=== PATIENT | female | born 1990 | race Caucasian/White ===

== ENCOUNTER 2017-05-10 00:44 | Emergency (ER) | payer BC, OTHER ==
[2017-05-10 01:31] LABS: BHCG - Serum Negative (NEGATIVE); Pregs Control Background? CLEAR/WHITE (CLR/WHITE); Pregs Control Bar Appear? YES (CONTROL BAR)
[2017-05-10 01:35] LABS: #Basophils 0.1 thou/uL (0.0-0.2); #Eosinphils 0.5 thou/uL (0.0-0.7); #Lymphocytes 4.2 thou/uL (1.20-3.40); #Monocytes 0.8 thou/uL (0.11-0.59); #Neutrophils 3.9 thou/uL (1.40-6.50); %Basophils 1.3 % (0.0-1.0); %Eosinophils 5.1 % (0.0-10.0); %Lymphocytes 44.3 % (21.0-51.0); %Monocytes 8.1 % (0.0-10.0); %Neutrophils 41.2 % (42.0-75.0); Hemoglobin 13.2 g/dL (12.0-16.0); Mean Corpuscular HGB CONC 34.2 g/dL (32.0-36.0); Mean Corpuscular Hemoglobin 28.8 pg (27.0-31.0); Mean Corpuscular Volume 84.1 fl (81.0-99.0); Mean Platelet Volume 12.1 fL (7.4-10.4); Platelet Count 200 thou/uL (130-400); RBC Distribution Width 11.1 % (11.5-14.5); Red Blood Cell (RBC) Count 4.58 mill/uL (4.20-5.40); White Blood Cell (WBC) Count 9.5 thou/uL (4.8-10.8)
[2017-05-10 01:36] LABS: Bilirubin Negative (Negative); Blood, Urine Negative (Negative); Clarity Clear (Clear); Glucose, Urine (Dipstick) Negative (Negative); Leukocyte Negative (Negative); Nitrite Negative (Negative); Protein, Urine (Dipstick) Negative (Neg-Trace); Urobilinogen 0.2 mg/dL (0.2-1.0); pH, Urine 6.5 (5.0-9.0)
[2017-05-10 01:38] LABS: Anion Gap 11 mmol/L (10-20); BUN (Urea Nitrogen) 12 mg/dL (7.0-18.7); Calc. Creatinine Clearance 0 mL/min (70-130); Calcium 9.1 mg/dL (7.8-10.44); Carbon Dioxide 25 mmol/L (22-29); Chloride 107 mmol/L (98-107); Estimated GFR-MDRD Greater than 90; Glucose 83 mg/dL (70-105); Potassium 3.4 mmol/L (3.5-5.1); Sodium 140 mmol/L (136-145)
[2017-05-10 01:41] LABS: Specific Gravity, Urine 1.033 (1.002-1.036)
== END 2017-05-10 02:00 | disposition home or self-care (01) ==
LOC: SCSER 00:44
DX: R42 Dizziness and giddiness (principal); R53.81 Other malaise; R51 Headache; J45.909 Unspecified asthma, uncomplicated
CPT/HCPCS: 80048; 81003; 84703; 85025; 99284

== ENCOUNTER 2017-12-20 12:30 | Emergency (ER) | payer BC ==
[~2017-12-20 12:30] MED LIST: Iopamidol 370 76% 100 ML VIAL ONE
[2017-12-20 13:31] LABS: #Basophils 0.1 thou/uL (0.0-0.2); #Eosinphils 0.2 thou/uL (0.0-0.7); #Lymphocytes 2.4 thou/uL (1.20-3.40); #Monocytes 0.7 thou/uL (0.11-0.59); #Neutrophils 4.7 thou/uL (1.40-6.50); %Basophils 1.2 % (0.0-1.0); %Eosinophils 2.7 % (0.0-10.0); %Lymphocytes 29.4 % (21.0-51.0); %Monocytes 8.5 % (0.0-10.0); %Neutrophils 58.3 % (42.0-75.0); ALT (SGPT) 14 U/L (8-55); AST (SGOT) 14 U/L (5-34); Albumin 3.9 g/dL (3.5-5.0); Alkaline Phosphatase 80 U/L (40-150); Anion Gap 12 mmol/L (10-20); BUN (Urea Nitrogen) 8 mg/dL (7.0-18.7); Bilirubin, Total 0.7 mg/dL (0.2-1.2); Calc. Creatinine Clearance 0 mL/min (70-130); Calcium 8.9 mg/dL (7.8-10.44); Carbon Dioxide 23 mmol/L (22-29); Chloride 109 mmol/L (98-107); Estimated GFR-MDRD Greater than 90; Globulin 2.9 g/dL (2.4-3.5); Glucose 79 mg/dL (70-105); Hemoglobin 12.6 g/dL (12.0-16.0); Large Platelets SLIGHT; MDiff Complete? YES; Mean Corpuscular HGB CONC 33.9 g/dL (32.0-36.0); Mean Corpuscular Hemoglobin 27.2 pg (27.0-31.0); Mean Corpuscular Volume 80.3 fL (78.0-98.0); PLT Morphology Comment Appears Adequate; Platelet Count 133 thou/uL (130-400); Potassium 3.7 mmol/L (3.5-5.1); Protein, Total 6.8 g/dL (6.0-8.3); RBC Distribution Width 11.2 % (11.5-14.5); RBC Morphology Normal; Red Blood Cell (RBC) Count 4.62 mill/uL (4.20-5.40); Sodium 140 mmol/L (136-145)
[2017-12-20 13:43] LABS: Pregnancy Test - Urine (BHCG) Negative (Negative); Pregu Control Background? CLEAR/WHITE (CLR/WHITE); Pregu Control Bar Appear? YES (CONTROL BAR); Specific Gravity 1.015 (1.002-1.036)
[2017-12-20 13:46] LABS: Bilirubin Negative (Negative); Blood, Urine Trace (Negative); Clarity Hazy (Clear); Glucose, Urine (Dipstick) 100 mg/dL (Negative); Leukocyte Small (Negative); Nitrite Positive (Negative); Protein, Urine (Dipstick) 100 mg/dL (Neg-Trace); Specific Gravity, Urine 1.015 (1.005-1.030)
[2017-12-20 13:48] LABS: Bacteria/HPF 4+ HPF (None Seen); RBC/HPF 0-3 HPF (0-3); WBC/HPF 21-50 HPF (0-3)
[2017-12-20 13:51] LABS: Lipase 14 U/L (8-78)
[2017-12-20] MEDS ORDERED: Ketorolac Tromethamine 30 MG/ML VIAL ONE (15:36)
--- NOTE | 2017-12-20 15:36 | CT ---
CT ABDOMEN AND PELVIS WITH ORAL AND IV CONTRAST: 12/20/17 HISTORY: Right sided flank pain. FINDINGS: Comparison is made with exam of 02/24/15. The lung bases are clear. The patient is post cholecystectomy. Calcified granulomas in the right lobe of the liver are again noted. The spleen, pancreas, adrenal glands and right kidney are normal. The previously noted tiny calculus in the right kidney is not seen on the current exam. There is a puncta te calculus in the left kidney. No hydroureteronephrosis seen on either side. No calculi seen in the aorta or the urinary bladder. No free air or lymphadenopathy is seen in the abdomen or pelvis. A tiny amount of free fluid is seen in the pelvis. The small bowel loops are not abnormally dilated. The uterus and ovaries are present. A normal appearing appendix is noted. IMPRESSION: 1. Tiny nonobstructing left renal calculus. 2. Small amount of free fluid in the pelvis. POS: [facility]
[2017-12-20] MEDS ORDERED: cefTRIAXone\\ROCEPHIN 2 GM VIAL ONE (15:45)
[2017-12-20] MEDS ORDERED: Sodium Chloride 0.9% 100 ML ONE (15:46)
== END 2017-12-20 17:32 | disposition home or self-care (01) ==
LOC: SCSER 12:30
DX: N12 Tubulo-interstitial nephritis, not specified as acute or chronic (principal); F32.9 Major depressive disorder, single episode, unspecified; J45.909 Unspecified asthma, uncomplicated; Z79.01 Long term (current) use of anticoagulants
CPT/HCPCS: 74177; 80053; 81003; 81015; 81025; 83690; 85025; 87077; 87086; 87186; 96361; 96365; 96375; J0696; J1885; J7050

== ENCOUNTER 2018-01-28 06:22 | Emergency (ER) | payer BC ==
[2018-01-28 06:46] LABS: #Basophils 0.1 thou/uL (0.0-0.2); #Eosinphils 0.2 thou/uL (0.0-0.7); #Monocytes 0.5 thou/uL (0.11-0.59); #Neutrophils 6.5 thou/uL (1.40-6.50); %Basophils 0.8 % (0.0-1.0); %Eosinophils 1.9 % (0.0-10.0); %Lymphocytes 35.1 % (21.0-51.0); %Monocytes 4.8 % (0.0-10.0); %Neutrophils 57.4 % (42.0-75.0); Hemoglobin 13.3 g/dL (12.0-16.0); Mean Corpuscular HGB CONC 32.7 g/dL (32.0-36.0); Mean Corpuscular Hemoglobin 28.4 pg (27.0-31.0); Mean Corpuscular Volume 86.9 fL (78.0-98.0); Mean Platelet Volume 10.3 fL (7.4-10.4); Platelet Count 166 thou/uL (130-400); RBC Distribution Width 11.7 % (11.5-14.5); Red Blood Cell (RBC) Count 4.66 mill/uL (4.20-5.40); White Blood Cell (WBC) Count 11.3 thou/uL (4.8-10.8)
[2018-01-28 07:07] LABS: ALT (SGPT) 30 U/L (8-55); AST (SGOT) 54 U/L (5-34); Albumin 4.1 g/dL (3.5-5.0); Alcohol Less than 10 mg/dL (Less than 10); Alkaline Phosphatase 109 U/L (40-150); Anion Gap 13 mmol/L (10-20); BUN (Urea Nitrogen) 11 mg/dL (7.0-18.7); Bilirubin, Total 0.5 mg/dL (0.2-1.2); Calc. Creatinine Clearance 0 mL/min (70-130); Calcium 8.9 mg/dL (7.8-10.44); Carbon Dioxide 22 mmol/L (22-29); Chloride 108 mmol/L (98-107); Estimated GFR-MDRD Greater than 90; Globulin 3.2 g/dL (2.4-3.5); Glucose 207 mg/dL (70-105); Protein, Total 7.3 g/dL (6.0-8.3); Salicylate Less than 8.0 mg/dL (15.0-30.0); Sodium 140 mmol/L (136-145)
[2018-01-28 07:19] LABS: Potassium 2.9 mmol/L (3.5-5.1)
[2018-01-28] MEDS ORDERED: Potassium Chloride 20 MEQ TAB ONE (08:08)
[2018-01-28 08:36] LABS: Bilirubin Negative (Negative); Blood, Urine Negative (Negative); Clarity CLEAR (Clear); Glucose, Urine (Dipstick) 250 mg/dL (Negative); Leukocyte Negative (Negative); Nitrite Negative (Negative); Protein, Urine (Dipstick) Trace mg/dL (Neg-Trace); Specific Gravity, Urine 1.038 (1.002-1.036); Urobilinogen 0.2 mg/dL (0.2-1.0); pH, Urine 5.5 (5.0-9.0)
[2018-01-28 08:45] LABS: Amphetamine Not Detected (NotDetected); Barbiturates Screen Not Detected (NotDetected); Benzodiazepine Screen Not Detected (NotDetected); Cocaine Metabolite Screen Not Detected (NotDetected); Medtox Control Line Valid? VALID (VALID); Medtox Reader # READER 1; Methadone Not Detected (NotDetected); Methamphetamine Not Detected (NotDetected); Opiate Screen Not Detected (NotDetected); Oxycodone Screen Not Detected (NotDetected); Phencyclidine (PCP) Not Detected (NotDetected); Pregnancy Test - Urine (BHCG) Negative (Negative); Pregu Control Background? CLEAR/WHITE (CLR/WHITE); Pregu Control Bar Appear? YES (CONTROL BAR); Specific Gravity 1.038 (1.002-1.036); THC/Cannabinoid Screen Not Detected (NotDetected); Tricyclic Screen Not Detected (NotDetected)
[2018-01-28 09:33] LABS: Alcohol Less than 10 mg/dL (Less than 10); Anion Gap 11 mmol/L (10-20); BUN (Urea Nitrogen) 12 mg/dL (7.0-18.7); Calc. Creatinine Clearance 0 mL/min (70-130); Calcium 8.7 mg/dL (7.8-10.44); Carbon Dioxide 25 mmol/L (22-29); Chloride 107 mmol/L (98-107); Estimated GFR-MDRD Greater than 90; Glucose 125 mg/dL (70-105); Potassium 3.8 mmol/L (3.5-5.1); Salicylate Less than 8.0 mg/dL (15.0-30.0); Sodium 139 mmol/L (136-145)
[2018-01-28] MEDS ORDERED: Ondansetron ODT 4 MG TAB ONE (15:02)
[2018-01-29] MEDS ORDERED: Escitalopram Oxalate 10 mg Tablet PO SCH (08:30)
--- NOTE | 2018-01-31 17:59 | EKG ---
Test Reason : ER INDICATION Blood Pressure : / mmHG Vent. Rate : 062 BPM Atrial Rate : 062 BPM P-R Int : 134 ms QRS Dur : 100 ms QT Int : 444 ms P-R-T Axes : 039 061 -70 degrees QTc Int : 450 ms Normal sinus rhythm with sinus arrhythmia Nonspecific T wave abnormality Abnormal ECG Confirmed by RADHIKA GONZALEZ, MICHELE ([id number]), editor map MILLY BARBER ([id number]) on 01/31/2018 5:59:25 PM Referred By: Confirmed By:MICHELE GARRIDO MD
== END 2018-01-29 08:55 ==
LOC: ERS 06:22
DX: T39.1X2A Poisoning by 4-Aminophenol derivatives, intentional self-harm, initial encounter (principal); T40.4X2A Poisoning by other synthetic narcotics, intentional self-harm, initial encounter; J45.909 Unspecified asthma, uncomplicated; F32.9 Major depressive disorder, single episode, unspecified; Z79.899 Other long term (current) drug therapy
CPT/HCPCS: 36415; 51701; 80053; 80306; 80307; 81003; 81025; 84443; 85025; 93005; 94760; A4353; Q0162

== ENCOUNTER 2018-02-20 23:20 | Emergency (ER) | payer BC, OTHER ==
[2018-02-20] MEDS ORDERED: Ibuprofen 800 MG TAB ONE (23:36)
--- NOTE | 2018-02-20 23:48 | RAD ---
LEFT FOREARM TWO VIEWS: 02/20/18 HISTORY: Hit in arm with a bowling ball. There is no signs of fracture or dislocation. IMPRESSION: Negative left forearm. POS: [facility]
== END 2018-02-21 00:11 | disposition home or self-care (01) ==
LOC: ERS 23:20
DX: S50.12XA Contusion of left forearm, initial encounter (principal); J45.909 Unspecified asthma, uncomplicated; F32.9 Major depressive disorder, single episode, unspecified; Z79.899 Other long term (current) drug therapy; Z79.01 Long term (current) use of anticoagulants; W20.8XXA Other cause of strike by thrown, projected or falling object, initial encounter

== ENCOUNTER 2018-03-13 11:58 | Emergency (ER) | payer BC, OTHER ==
[2018-03-13] MEDS ORDERED: Acetaminophen 500 MG TAB ONE (13:43)
--- NOTE | 2018-03-13 14:42 | CT ---
NONCONTRAST HEAD CT: Comparison: 12-18-13 History: Head injury. Pain. Patient hit her head on a metal object at work. Worsening symptoms. FINDINGS: No parenchymal hemorrhage. No extraaxial hematoma. No midline shift. Basilar cisterns are patent. Bra in volume, age appropriate. Cortical hayes white matter differentiation is preserved. Ventricles and sulci are patent and symmetric. Calvarium is intact. Adequate aeration of the sinuses and mastoid air cells. IMPRESSION: No intracranial post traumatic sequalae. POS: [facility]
== END 2018-03-13 13:57 | disposition home or self-care (01) ==
LOC: ERS 11:58
DX: F07.81 Postconcussional syndrome (principal); J45.909 Unspecified asthma, uncomplicated; F32.9 Major depressive disorder, single episode, unspecified; Z79.899 Other long term (current) drug therapy
CPT/HCPCS: 70450

== ENCOUNTER 2018-08-01 19:08 | Emergency (ER) | payer BC, MEDICAID ==
[2018-08-01 19:50] LABS: Bilirubin Negative (Negative); Blood, Urine Negative (Negative); Clarity TURBID (Clear); Glucose, Urine (Dipstick) Negative (Negative); Leukocyte Small (Negative); Nitrite Negative (Negative); Protein, Urine (Dipstick) Negative (Neg-Trace); Specific Gravity, Urine 1.021 (1.002-1.036); Urobilinogen 0.2 mg/dL (0.2-1.0); pH, Urine 7.5 (5.0-9.0)
[2018-08-01 19:52] LABS: Bacteria/HPF 1+ HPF (None Seen); Hyaline Casts/LPF 4-6 HYALINE CAST LPF (0-3 Hyaline); Pathc Cast-AUWi Flag 0.95 (0-2.49); Squamous Epithelial 21-50 HPF (0-3)
[2018-08-01 19:59] LABS: RBC/HPF 0-3 HPF (0-3)
[2018-08-01 20:00] LABS: Crystals/HPF 2+ AMORPH PHOS HPF (Negative)
[2018-08-01 20:13] LABS: #Basophils 0.1 thou/uL (0.0-0.2); #Eosinphils 0.1 thou/uL (0.0-0.7); #Lymphocytes 2.6 thou/uL (1.20-3.40); #Monocytes 0.7 thou/uL (0.11-0.59); #Neutrophils 5.2 thou/uL (1.40-6.50); %Basophils 0.8 % (0.0-1.0); %Eosinophils 1.5 % (0.0-10.0); %Lymphocytes 30.3 % (21.0-51.0); %Monocytes 7.5 % (0.0-10.0); %Neutrophils 59.8 % (42.0-75.0); Hemoglobin 14.2 g/dL (12.0-16.0); Mean Corpuscular HGB CONC 33.3 g/dL (32.0-36.0); Mean Corpuscular Hemoglobin 28.6 pg (27.0-31.0); Mean Corpuscular Volume 85.7 fL (78.0-98.0); Mean Platelet Volume 10.5 fL (7.4-10.4); Platelet Count 183 thou/uL (130-400); RBC Distribution Width 12.7 % (11.5-14.5); Red Blood Cell (RBC) Count 4.97 mill/uL (4.20-5.40); White Blood Cell (WBC) Count 8.6 thou/uL (4.8-10.8)
[2018-08-01 20:43] LABS: ALT (SGPT) 18 U/L (8-55); AST (SGOT) 16 U/L (5-34); Albumin 4.6 g/dL (3.5-5.0); Alkaline Phosphatase 81 U/L (40-150); Anion Gap 10 mmol/L (10-20); BUN (Urea Nitrogen) 8 mg/dL (7.0-18.7); Bilirubin, Total 0.6 mg/dL (0.2-1.2); Calc. Creatinine Clearance 0 mL/min (70-130); Calcium 9.8 mg/dL (7.8-10.44); Carbon Dioxide 26 mmol/L (22-29); Chloride 104 mmol/L (98-107); Estimated GFR-MDRD Greater than 90; Globulin 3.5 g/dL (2.4-3.5); Glucose 71 mg/dL (70-105); Potassium 3.7 mmol/L (3.5-5.1); Protein, Total 8.1 g/dL (6.0-8.3); Sodium 136 mmol/L (136-145)
[2018-08-01] MEDS ORDERED: cefTRIAXone\\ROCEPHIN 1 GM VIAL ONE (20:43)
== END 2018-08-01 21:31 | disposition home or self-care (01) ==
LOC: ERS 19:08
DX: O23.41 Unspecified infection of urinary tract in pregnancy, first trimester (principal); O99.511 Diseases of the respiratory system complicating pregnancy, first trimester; J45.909 Unspecified asthma, uncomplicated; O99.341 Other mental disorders complicating pregnancy, first trimester; F41.9 Anxiety disorder, unspecified; F32.9 Major depressive disorder, single episode, unspecified; Z79.01 Long term (current) use of anticoagulants; Z79.51 Long term (current) use of inhaled steroids; Z3A.01 Less than 8 weeks gestation of pregnancy
CPT/HCPCS: 80053; 81003; 81015; 84702; 85025; 87086; 96361; 96365; J0696

== ENCOUNTER 2018-10-30 13:20 | Outpatient (CLI) | payer MEDICAID ==
--- NOTE | 2018-10-30 14:41 | ULT ---
OB ULTRASOUND: HISTORY: A 28-year-old female. Evaluate size, dates, and anatomy. COMPARISON: None. TECHNIQUE: Multiplanar hayes-scale and color Doppler images were obtained in a transabdominal ultrasound. FINDINGS: There is a single live intrauterine with a heart rate of 142 beats per minute. A barak vey was performed. The patient has bilateral choroid plexus cysts. The other intracranial structure s are unremarkable. The heart, stomach, umbilical cord, umbilical cord insertion, kidneys, face, and extremities are unremarkable. The average age of the fetus, based off today's examination, is 20 we eks 3 days. The following measurements were taken and dates based off these measurements are as foll ows: BPD: 4.74 cm (20 weeks 3 days). HC: 17.49 cm (20 weeks 1 day). AC: 15.44 cm (20 weeks 5 days). FL: 3.18 cm (20 weeks 0 days). The placenta is posterior in location without evidence of placenta previa. AMANDA is 9.73 cm, which is normal. IMPRESSION: 1. Live intrauterine , with estimated age 20 weeks 3 days. 2. Bilateral choroid plexus cysts. Although this is most likely benign, bilateral choroid plexus cy sts can be a sign of a genetic abnormality. Recommend followup with 3D ultrasound and chromosomal an alysis. POS: [facility]
== END 2018-10-30 13:21 | disposition home or self-care (01) ==
LOC: BICULT 13:20
PROVIDERS: ATTEND Family Medicine
DX: O35.0XX0 Maternal care for (suspected) central nervous system malformation in fetus, not applicable or unspecified (principal); Z3A.20 20 weeks gestation of pregnancy
CPT/HCPCS: 76805

== ENCOUNTER 2018-11-03 21:10 | Emergency (ER) | payer MEDICAID ==
[2018-11-03] MEDS ORDERED: Ondansetron PF 4 MG/2 ML Vial ONE (21:33)
[2018-11-03 21:47] LABS: #Eosinphils 0.1 thou/uL (0.0-0.7); #Monocytes 1.1 thou/uL (0.11-0.59); #Neutrophils 9.1 thou/uL (1.40-6.50); %Basophils 0.3 % (0.0-1.0); %Eosinophils 1.2 % (0.0-10.0); %Monocytes 9.1 % (0.0-10.0); %Neutrophils 73.4 % (42.0-75.0); Hemoglobin 11.8 g/dL (12.0-16.0); Mean Corpuscular Hemoglobin 29.6 pg (27.0-31.0); Mean Corpuscular Volume 86.9 fL (78.0-98.0); Mean Platelet Volume 10.2 fL (7.4-10.4); Platelet Count 193 thou/uL (130-400); RBC Distribution Width 12.4 % (11.5-14.5); Red Blood Cell (RBC) Count 3.98 mill/uL (4.20-5.40); White Blood Cell (WBC) Count 12.4 thou/uL (4.8-10.8)
[2018-11-03 22:02] LABS: Bilirubin Negative (Negative); Blood, Urine Negative (Negative); Clarity Cloudy (Clear); Glucose, Urine (Dipstick) Negative (Negative); Leukocyte Negative (Negative); Nitrite Negative (Negative); Protein, Urine (Dipstick) 30 mg/dL (Neg-Trace); Urobilinogen 0.2 mg/dL (0.2-1.0)
[2018-11-03 22:03] LABS: Specific Gravity, Urine 1.034 (1.002-1.036)
[2018-11-03 22:04] LABS: Bacteria/HPF 2+ HPF (None Seen); RBC/HPF 0-3 HPF (0-3)
[2018-11-03 22:05] LABS: Hyaline Casts/LPF 0-3 HYALINE CAST LPF (0-3 Hyaline); Yeast-All Forms None Seen HPF (None Seen)
[2018-11-03 22:09] LABS: ALT (SGPT) 16 U/L (8-55); AST (SGOT) 13 U/L (5-34); Albumin 3.6 g/dL (3.5-5.0); Alkaline Phosphatase 83 U/L (40-150); Anion Gap 11 mmol/L (10-20); BUN (Urea Nitrogen) 10 mg/dL (7.0-18.7); Bilirubin, Total 0.2 mg/dL (0.2-1.2); Calc. Creatinine Clearance 0 mL/min (70-130); Calcium 8.6 mg/dL (7.8-10.44); Carbon Dioxide 23 mmol/L (22-29); Chloride 102 mmol/L (98-107); Estimated GFR-MDRD Greater than 90; Globulin 3.4 g/dL (2.4-3.5); Glucose 77 mg/dL (70-105); Potassium 3.3 mmol/L (3.5-5.1); Sodium 133 mmol/L (136-145)
== END 2018-11-03 22:55 | disposition home or self-care (01) ==
LOC: ERS 21:10
DX: O21.0 Mild hyperemesis gravidarum (principal); R82.71 Bacteriuria; O99.89 Other specified diseases and conditions complicating pregnancy, childbirth and the puerperium; Z3A.21 21 weeks gestation of pregnancy; O99.512 Diseases of the respiratory system complicating pregnancy, second trimester; J45.909 Unspecified asthma, uncomplicated; O99.342 Other mental disorders complicating pregnancy, second trimester; F41.9 Anxiety disorder, unspecified; Z79.01 Long term (current) use of anticoagulants; Z79.51 Long term (current) use of inhaled steroids
CPT/HCPCS: 80053; 81003; 81015; 85025; 87086; 96361; 96374; J2405

== ENCOUNTER 2018-11-14 03:39 | Day surgery (SDC) | payer MEDICAID ==
[2018-11-14 04:01] VITALS: BP 104/58; TEMP 97.7; BMI 26.1
--- NOTE | 2018-11-14 04:34 | PDOC.LDHP ---
Labor and Delivery H&P Chief complaint: abdominal pain HPI: 28 yo at 22.6 here for lower abdominal pain. Started around midnight, stays in suprapubic region. Was seen in ER on 11/04 for similar sxs in which she was diagnosed with UTI and given keflex. Used old keflex from prior UTI and has been taking once daily as opposed to twice daily. This morning pain was so bad she came here. Denies, n/v, fevers, chills, hematuria, flank pain. Has had two uncomplicated UTIs in thus far. Reports urine is usually dark and drinks 2-3 standard bottles water/day. Denies VB/VD/LOF/CTX. Current gestational age (weeks): 22 (22.6) Due date: 03/14/19 Dating criteria: first trimester ultrasound Grav: 2 Para: 1 OB History Details: 1. term Current complications: none Past Medical History: asthma, anxiety/depression, hx of UTI in Current medications: pre-fatuma vitamins Allergies/Adverse Reactions: Allergies Allergy/AdvReac Type Severity Reaction Status Date / Time avocado Allergy Intermediate Swollen Verified 02/26/16 18:57 Lips banana Allergy Intermediate Swollen Verified 02/26/16 18:57 Lips kiwi Allergy Verified 02/26/16 18:57 Latex, Natural Rubber Allergy Verified 11/14/18 03:56 Social history: none - Physical Exam Vital signs reviewed and normal: yes General: NAD, resting Heart: RRR Lungs: CTAB Abdomen: gravid (suprapubic TTP, no flank tenderness) Extremeties: no edema - OB Labs Blood type: unknown RH: unknown Antibody Screen: unknown HIV: unknown RPR: unknown HEPSAg: unknown 1 hour GCT: unknown GBS: unknown Urine drug screen: not done - Plan -: 28 yo at 22.6 by reported 1T sono 1. 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 Loomis 2. Dysuria -Concern for UTI in light of medication noncompliance -UA/UCx 3. Hx of UTI in -encouraged inc. water intake on daily basis for prevention of UTIs -discussed can take cranberry juice 4. Anxiety/depression -stable, continue lexapro 5. Asthma -albuterol INH PRN, stable Discussed w/ Dr. Jane
[2018-11-14 04:59] LABS: Bacteria/HPF 1+ HPF (None Seen); Bilirubin Negative (Negative); Blood, Urine Negative (Negative); Clarity Turbid (Clear); Glucose, Urine (Dipstick) Normal (Negative); Leukocyte Negative Leu/uL (Negative); Nitrite Negative (Negative); Protein, Urine (Dipstick) 50 mg/dL (Neg-Trace)
[2018-11-14 05:31] LABS: Calcium Oxalate Crystals 1+ HPF (None Seen)
[2018-11-14] MEDS ORDERED: cefTRIAXone\\ROCEPHIN 1 GM VIAL IM SCH (06:30)
--- NOTE | 2018-11-14 06:36 | PDOC.EVN ---
Event Note - Event Note Event Note: Per US tech report cervical length 3.1 to 3.5 cm, good fluid, movement, no other abnormal findings. UA consistent with UTI. Discussed results w/ patient. will give rocephin here with 5 day po abx completion. Discussed adequate fluid hydration. Will f/u on sensitivities.
[2018-11-14] MEDS ORDERED: Lidocaine 1% (PF) 30 ML VIAL SC SCH (06:45)
--- NOTE | 2018-11-14 07:30 | ULT ---
PELVIC ULTRASOUND: CLINICAL HISTORY: Evaluation of cervical length. FINDINGS: Limited sonographic imaging of the pelvis localized to the cervix reveals a cervical length of approx imately 3.3 cm. The imaged fetus demonstrates cardiac activity at 123 b.p.m. The delinquent tax collection assistant notes motion duri ng the exam. The fetus is in a vertex lie on the provided views. IMPRESSION: Cervical length, 3.3 cm, average. POS: [facility]
== END 2018-11-14 07:25 | disposition home or self-care (01) ==
LOC: L&D/OP 03:39
PROVIDERS: ATTEND Family Medicine
DX: O23.42 Unspecified infection of urinary tract in pregnancy, second trimester (principal); O99.512 Diseases of the respiratory system complicating pregnancy, second trimester; J45.909 Unspecified asthma, uncomplicated; O99.342 Other mental disorders complicating pregnancy, second trimester; F41.9 Anxiety disorder, unspecified; F32.9 Major depressive disorder, single episode, unspecified; Z3A.22 22 weeks gestation of pregnancy; Z79.2 Long term (current) use of antibiotics; Z91.040 Latex allergy status; Z91.018 Allergy to other foods; Z91.14 Patient's other noncompliance with medication regimen
CPT/HCPCS: 76856; 81001; 87086; J0696; J2001

== ENCOUNTER 2019-02-19 20:26 | Day surgery (SDC) | payer OTHER ==
[2019-02-19 21:00] VITALS: BP 104/60; TEMP 97.7; BMI 31.7
--- NOTE | 2019-02-19 21:23 | PDOC.FPROB ---
FMR OB H&P: HPI - History of Present Illness Chief Complaint: contractions & possible LOF Indentification: @ 36.5 weeks History of Present Illness: 28YO @ 36.5 weeks with an EDC of 03/14/19 who presented to L&D with a CC of contractions that began around ~17:45 this evening while she was at work. 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 She states the contractions were about 15 minutes apart and she may have had a small amount of leakage of fluid at the time so decided to come to L&D for evaluation. She denies any vaginal bleeding or abnormal discharge & endorses regular movement. She states she was last sexually active ~2 days ago. 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: h/o chlamydia in last h/o abnormal Pap & HPV, last pap last year WNLs per patient - Surgical History Sx History: cholecystectomy - Social History Social History: no TAD - Family History Family History: non-contributory FMR OB H&P: Medications - Current Home Medications: Medication Instructions Recorded Confirmed Type Albuterol Sulfate [Albuterol 8.5 gm IH PRN PRN 12/23/12 02/19/19 History Sulfate HFA] Vitamin 1 tablet PO DAILY 10/23/15 02/19/19 History Escitalopram Oxalate [Lexapro] 10 mg PO DAILY 02/19/19 02/19/19 History Allergies/Adverse Reactions: Allergies Allergy/AdvReac Type Severity Reaction Status Date / Time avocado Allergy Intermediate Swollen Verified 02/19/19 20:52 Lips banana Allergy Intermediate Swollen Verified 02/19/19 20:52 Lips Latex, Natural Rubber Allergy Intermediate Hives Verified 02/19/19 20:52 kiwi Allergy Verified 02/19/19 20:52 FMR OB H&P: ROS - Review of Systems General: denies: fever/chills, recent trauma Eyes: denies: vision changes, double vision ENT: denies: nasal congestion, ear pain, sore throat Cardiovascular: denies: chest pain, palpitation Respiratory: denies: cough, shortness of breath Gastrointestinal: denies: abdominal pain, nausea, vomiting, diarrhea, constipation Genitourinary (Female): reports: contractions. denies: dysuria, hematuria, vaginal discharge, vaginal pain, vaginal bleeding, vaginal pressure Musculoskeletal: denies: pain, swelling Neurologic: reports: headache. denies: syncope Integumentary: denies: itching, rash Breast: denies: skin changes, pain/tenderness Endocrine: denies: polydipsia, polyuria Hematologic/Lymphatic: denies: prolonged or excessive bleeding Psychological: reports: depression, anxiety FMR OB H&P: Vital Signs - Maternal Vital signs: Vital Signs - First Documented Temp Pulse Resp BP Pulse Ox 97.7 F 74 18 104/60 98 02/19/19 20:51 02/19/19 20:51 02/19/19 20:51 02/19/19 20:51 02/19/19 20:51 - Heart Tones Baseline: 120 Variability: moderate Acceleration: present Deceleration: absent [place] contractions every: no regular contractions noted FMR OB H&P: Physical Exam - Physical Exam General: NAD, awake, alert and oriented HEENT: normocephalic and atraumatic, conjunctiva clear, grossly normal vision, grossly normal hearing Neck: supple, FROM Heart: RRR, normal S1/S2, pulses present, no edema General: CTAB, no respiratory distress, good air movement, no rales/rhonchi, no wheezing, no retractions Abdomen: soft, gravid, non-tender, bowel sound present Musculoskeletal: normal gait and station, FROM in all four extremities Neurological: cranial nerves II through XII intact, sensation to pain,touch and proprioception grossly normal, no focal deficit Skin: no rash, good tugor Lymphatic: no unusual bruising or bleeding, no purpura, no petechia Psychiatric: intact recent and remote memory, good judgement and insight, normal mood and affect - Pelvic Exam SVE: /High FMR OB H&P: A/P - Problem List (1) Single in third trimester Status: Acute Code(s): Z34.93 - ENCNTR FOR SUPRVSN OF NORMAL PREG, UNSP, THIRD TRIMESTER (2) History of chlamydia infection Status: Acute Code(s): Z86.19 - PERSONAL HISTORY OF OTHER INFECTIOUS AND PARASITIC DISEASES Disposition: 28YO @ 36.5 weeks w/ an EDC of 03/14/19 who presented to L&D for evaluation of contractions & possible LOF. Lower abdominal pain/contractions, r/o labor & ROM: - No contractions noted on toco since arrival & FHTs reassuring with baseline in 120s & moderate variability. - Amnisure swab obtained which was negative. SVE /High. - Most likely [place] contractions that have now resolved. Dispo: Patient and fetus stable with no signs of imminent labor or need for further monitoring. Will d/c home with instructions to f/u with PCP for regularly scheduled appointments. Discussion: Date/Time: 02/19/192122 This H&P was discussed with [] and [] who agree with the above documentation and plan. Addendum - Attending - Attending Attestation Date/Time: 02/22/19 153 I personally evaluated the patient and discussed the management with Dr. Dye I agree with the History, Examination, Assessment and Plan documented above with any addition or exceptions noted below. Vital signs normal and stable. no evidence of labor. Pt discharged home with labor precautions and instructions to f/u with primary ob as scheduled.
[2019-02-19 21:26] LABS: Amnisure Test No Membranes Rupture (No Rupture)
[2019-02-19 21:27] LABS: Amnisure Internal Control QC ACCEPTABLE (ACCEPTABLE)
== END 2019-02-19 21:55 | disposition home or self-care (01) ==
LOC: L&D/OP 20:26
PROVIDERS: ATTEND Family Medicine
DX: O47.03 False labor before 37 completed weeks of gestation, third trimester (principal); O99.343 Other mental disorders complicating pregnancy, third trimester; F41.9 Anxiety disorder, unspecified; F32.9 Major depressive disorder, single episode, unspecified; O99.513 Diseases of the respiratory system complicating pregnancy, third trimester; J45.909 Unspecified asthma, uncomplicated; Z3A.36 36 weeks gestation of pregnancy; Z79.899 Other long term (current) drug therapy; Z86.19 Personal history of other infectious and parasitic diseases; Z91.018 Allergy to other foods; Z91.040 Latex allergy status; Z91.048 Other nonmedicinal substance allergy status
CPT/HCPCS: 84112

== ENCOUNTER 2019-03-07 19:15 | Inpatient (IN) | payer OTHER ==
[2019-03-07] MEDS ORDERED: hydrALAZINE 20 MG/ML VIAL SLOW IVP PRN (20:49)
[2019-03-07] MEDS ORDERED: Misoprostol 200 MCG TAB PR PRN (20:49)
[2019-03-07] MEDS ORDERED: Lidocaine 1% (PF) 30 ML VIAL SC PRN (20:49)
[2019-03-07] MEDS ORDERED: Butorphanol Tartrate 1 MG/ML VIAL SLOW IVP PRN (20:49)
[2019-03-07] MEDS ORDERED: Carboprost 250 MCG/ML AMP IM PRN (20:49)
[2019-03-07] MEDS ORDERED: Ibuprofen 800 MG TAB PO PRN (20:49)
[2019-03-07] MEDS ORDERED: Diphenoxylate HCl/Atropine Tablet PO PRN (20:49)
[2019-03-07] MEDS ORDERED: Promethazine HCl 25 MG/ML VIAL IM PRN (20:49)
[2019-03-07] MEDS ORDERED: Methylergonovine 0.2 MG/ML VIAL IM PRN (20:49)
[2019-03-07] MEDS ORDERED: NS / Oxytocin 40 units/1000ml 1,000 ML IV PRN (20:49)
[2019-03-07] MEDS ORDERED: HYDROcodone/Acetaminophen 5/325 mg Tablet PO PRN (20:49)
[2019-03-07] MEDS ORDERED: Ondansetron PF 4 MG/2 ML Vial IVP PRN (20:49)
[2019-03-07 20:51] VITALS: BMI 30.7
[2019-03-07] MEDS ORDERED: NS w/ Oxytocin 10 units 500 ML IV SCH (21:00)
[2019-03-07] MEDS: Lactated Ringer's 1,000 ML IV SCH (21:10)
[2019-03-07] MEDS: NS w/ Oxytocin 10 units 500 ML IV SCH (21:15)
[2019-03-07] MEDS: Misoprostol 100 MCG TAB PO SCH (21:30)
[2019-03-07 21:39] LABS: Mean Corpuscular HGB CONC 35.1 g/dL (32.0-36.0); Mean Corpuscular Hemoglobin 30.6 pg (27.0-31.0); Mean Corpuscular Volume 87.1 fL (78.0-98.0); Mean Platelet Volume 11.9 fL (7.4-10.4); Platelet Count 151 thou/uL (130-400); Red Blood Cell (RBC) Count 3.91 mill/uL (4.20-5.40); White Blood Cell (WBC) Count 13.9 thou/uL (4.8-10.8)
[2019-03-07 22:18] LABS: Syphilis Antibody Nonreactive (Nonreactive); Syphilis Antibody Index 0.07 S/CO (<1.00 Non-Reactive)
[2019-03-08 00:28] LABS: HBSAg Index 0.13 S/CO (0-0.99); Hep B Surf Ag Non-Reactive S/CO (NonReactive)
[2019-03-08] MEDS: Misoprostol 100 MCG TAB PO SCH ×3 (02:24→07:31)
[2019-03-08] MEDS: Lactated Ringer's 1,000 ML IV SCH ×3 (05:29→21:40)
[2019-03-08] MEDS ORDERED: Fentanyl 4 mcg/Bup 0.1% Cadd 100 ML ONE ×2 (09:26→15:24)
[2019-03-08] MEDS ORDERED: Promethazine HCl 25 MG/ML VIAL IM PRN ×2 (09:51→21:01)
[2019-03-08] MEDS ORDERED: ePHEDrine/0.9% NaCl/PF SYRINGE 50 mg/10 ml SLOW IVP PRN (09:51)
[2019-03-08] MEDS ORDERED: Lactated Ringer's 500 ML IV PRN (09:51)
[2019-03-08] MEDS ORDERED: Acetaminophen 325 MG TAB PO PRN (09:51)
[2019-03-08] MEDS ORDERED: Ondansetron PF 4 MG/2 ML Vial IVP PRN ×2 (09:51→21:01)
[2019-03-08] MEDS ORDERED: Naloxone HCl 0.4 mg/ml Vial IVP PRN ×2 (09:51)
[2019-03-08] MEDS ORDERED: diphenhydrAMINE 50 MG/ML VIAL IVP PRN (09:51)
[2019-03-08] MEDS ORDERED: Communication Order-Pharmacy FS SCH (10:00)
[2019-03-08] MEDS ORDERED: Fentanyl 4 mcg/Bupivacaine 0.1% Cassette 100 ML EPIDURAL SCH (10:00)
[2019-03-08] MEDS: NS w/ Oxytocin 10 units 500 ML IV SCH (11:31)
[2019-03-08] MEDS ORDERED: Lidocaine 1% (PF) 30 ML VIAL ONE (13:00)
[2019-03-08] MEDS ORDERED: NS / Oxytocin 40 units/1000ml 1,000 ML ONE (13:00)
[2019-03-08] MEDS ORDERED: CEFAZOLIN 1 GM VIAL SLOW IVP SCH (17:45)
[2019-03-08] MEDS ORDERED: CEFAZOLIN 2 GM in Premix Bag 1 BAG IVPB SCH (18:00)
[2019-03-08] MEDS ORDERED: Azithromycin 500 MG in Sodium Chloride 0.9% 250 ML 250 ML IVPB SCH (18:15)
[2019-03-08] MEDS ORDERED: Bisacodyl 10 MG SUPP PR PRN (21:01)
[2019-03-08] MEDS ORDERED: Benzocaine-Menthol 82.5 ML CAN TOP PRN (21:01)
[2019-03-08] MEDS ORDERED: NS / Oxytocin 40 units/1000ml 1,000 ML IV SCH (21:01)
[2019-03-08] MEDS ORDERED: HYDROcodone/Acetaminophen 5/325 mg Tablet PO PRN (21:01)
[2019-03-08] MEDS ORDERED: diphenhydrAMINE 25 MG CAP PO PRN (21:01)
[2019-03-08] MEDS ORDERED: hydrALAZINE 20 MG/ML VIAL SLOW IVP PRN (21:01)
[2019-03-08] MEDS ORDERED: Milk Of Magnesia 30 ML UDCUP PO PRN (21:01)
[2019-03-08] MEDS ORDERED: Lanolin Ointment 7 GM TUBE TOP PRN (21:01)
[2019-03-08] MEDS: Docusate Calcium (SURFAK) 240 MG CAP PO SCH (21:38)
[2019-03-08] MEDS: HYDROcodone/Acetaminophen 5/325 mg Tablet PO PRN (21:38)
[2019-03-08] MEDS ORDERED: Ibuprofen 800 MG TAB PO SCH (22:00)
[2019-03-09] MEDS: Ibuprofen 800 MG TAB PO SCH ×3 (03:27→21:58)
[2019-03-09] MEDS: HYDROcodone/Acetaminophen 5/325 mg Tablet PO PRN (03:27)
[2019-03-09] MEDS: CEFAZOLIN 2 GM in Premix Bag 1 BAG IVPB SCH ×3 (03:29→20:01)
[2019-03-09 05:58] LABS: Hemoglobin 10.3 g/dL (12.0-16.0); Mean Corpuscular Hemoglobin 27.8 pg (27.0-31.0); Mean Corpuscular Volume 86.8 fL (78.0-98.0); Mean Platelet Volume 11.1 fL (7.4-10.4); Platelet Count 137 thou/uL (130-400); RBC Distribution Width 13.2 % (11.5-14.5); White Blood Cell (WBC) Count 12.4 thou/uL (4.8-10.8)
[2019-03-09] MEDS ORDERED: Adacel (T-DAP) 0.5 ML SYRINGE IM ONE (09:00)
[2019-03-09] MEDS ORDERED: Prenatal Vitamin 1 TAB PO SCH (09:00)
[2019-03-09] MEDS: Ferrous Sulfate 325 MG TAB PO SCH ×2 (09:39→17:21)
[2019-03-09] MEDS: Docusate Calcium (SURFAK) 240 MG CAP PO SCH ×2 (09:39→21:58)
[2019-03-09] MEDS ORDERED: Sodium Chloride 0.9% 10 ML ONE ×3 (12:36→20:30)
[2019-03-09] MEDS ORDERED: Escitalopram Oxalate 10 mg Tablet PO SCH (13:00)
[2019-03-09] MEDS ORDERED: diphenhydrAMINE 50 MG/ML VIAL IVP PRN (22:20)
[2019-03-09] MEDS ORDERED: Lactated Ringer's 500 ML IV PRN (22:20)
[2019-03-09] MEDS ORDERED: Bisacodyl 10 MG SUPP PR PRN (22:22)
[2019-03-09] MEDS ORDERED: Naloxone HCl 0.4 mg/ml Vial IVP PRN (22:22)
[2019-03-09] MEDS ORDERED: diphenhydrAMINE 25 MG CAP PO PRN (22:22)
[2019-03-09] MEDS ORDERED: Benzocaine-Menthol 82.5 ML CAN TOP PRN (22:22)
[2019-03-09] MEDS ORDERED: HYDROcodone/Acetaminophen 5/325 mg Tablet PO PRN ×2 (22:23)
[2019-03-09] MEDS ORDERED: Lanolin Ointment 7 GM TUBE TOP PRN (22:23)
[2019-03-09] MEDS ORDERED: Ondansetron PF 4 MG/2 ML Vial IVP PRN (22:23)
[2019-03-09] MEDS ORDERED: Milk Of Magnesia 30 ML UDCUP PO PRN (22:23)
[2019-03-09] MEDS ORDERED: Promethazine HCl 25 MG/ML VIAL IM PRN (22:25)
[2019-03-09] MEDS ORDERED: NS / Oxytocin 40 units/1000ml 1,000 ML IV SCH (22:30)
[2019-03-10] MEDS: CEFAZOLIN 2 GM in Premix Bag 1 BAG IVPB SCH ×2 (03:34→12:30)
[2019-03-10] MEDS ORDERED: Ibuprofen 800 MG TAB PO SCH (06:00)
[2019-03-10] MEDS ORDERED: Ferrous Sulfate 325 MG TAB PO SCH (08:00)
[2019-03-10 08:38] VITALS: BP 117/66; TEMP 98
[2019-03-10] MEDS ORDERED: Docusate Calcium (SURFAK) 240 MG CAP PO SCH (09:00)
[2019-03-10] MEDS ORDERED: Escitalopram Oxalate 10 mg Tablet PO SCH ×2 (09:00)
[2019-03-10] MEDS ORDERED: Prenatal Vitamin 1 TAB PO SCH (09:00)
== END 2019-03-10 17:00 | disposition home or self-care (01) | DRG 807 ==
LOC: L&D 19:56 → 3SW 03-08 21:26 → UNDODISIN 03-09 14:45
PROVIDERS: ADMIT Family Medicine; ATTEND Family Medicine
PROC: 10E0XZZ Delivery of Products of Conception, External Approach (ICD-10-PCS; principal; 2019-03-08)
PROC: 0HQ9XZZ Repair Perineum Skin, External Approach (ICD-10-PCS; 2019-03-08)
PROC: 10907ZC Drainage of Amniotic Fluid, Therapeutic from Products of Conception, Via Natural or Artificial Opening (ICD-10-PCS; 2019-03-08)
PROC: 3E033VJ Introduction of Other Hormone into Peripheral Vein, Percutaneous Approach (ICD-10-PCS; 2019-03-08)
PROC: 10J1XZZ Inspection of Products of Conception, Retained, External Approach (ICD-10-PCS; 2019-03-08)
PROC: 3E0234Z Introduction of Serum, Toxoid and Vaccine into Muscle, Percutaneous Approach (ICD-10-PCS; 2019-03-09)
DX: O76 Abnormality in fetal heart rate and rhythm complicating labor and delivery (principal); Z37.0 Single live birth; Z3A.39 39 weeks gestation of pregnancy; O69.81X0 Labor and delivery complicated by cord around neck, without compression, not applicable or unspecified; O70.0 First degree perineal laceration during delivery; O73.0 Retained placenta without hemorrhage; Z23 Encounter for immunization
CPT/HCPCS: 36415; 51702; 85027; 86780; 86850; 86900; 86901; 87340; J0456; J0595; J0690; J2001; J2210; J2405; J2590; J7050

== ENCOUNTER 2019-03-19 13:19 | Emergency (ER) | payer OTHER ==
--- NOTE | 2019-03-19 14:17 | ULT ---
ULTRASOUND WITH DOPPLER DUPLEX VENOUS LOWER EXTREMITY LEFT: CPT: 11525 ICD-10-PCS: B54D INDICATION: Pain. TECHNIQUE: Color flow Doppler, spectral waveform analysis of pulsed Doppler, and hayes-scale imaging with yobany gene and augmentation, were used to evaluate the left common femoral, femoral, popliteal, posterior t ibial, and superficial femoral, veins; and the proximal portions of the profunda femoral and greater saphenous, veins. FINDINGS: There is appropriate compressibility and flow within the imaged deep vein system of the left lower ex tremity without evidence of thrombus. IMPRESSION: No deep venous thrombosis. POS: [facility]
== END 2019-03-19 16:09 | disposition home or self-care (01) ==
LOC: ERS 13:19
DX: M79.662 Pain in left lower leg (principal); J45.909 Unspecified asthma, uncomplicated; F41.9 Anxiety disorder, unspecified; F32.9 Major depressive disorder, single episode, unspecified

== ENCOUNTER 2019-04-03 19:40 | Emergency (ER) | payer OTHER ==
--- NOTE | 2019-04-03 20:33 | RAD ---
XR Chest 1 View Portable History: Pneumonia Comparison: None. Findings: Lungs are clear. No pneumothorax. No effusion. No acute osseous abnormality. Impression: No acute intrathoracic abnormality.
== END 2019-04-03 22:06 | disposition home or self-care (01) ==
LOC: ERS 19:40
DX: J06.9 Acute upper respiratory infection, unspecified (principal); J45.909 Unspecified asthma, uncomplicated
CPT/HCPCS: 71045; 87804